=== PATIENT | male | born 1945 | race Caucasian/White ===

== ENCOUNTER 2018-04-21 18:28 | Emergency (ER) | payer MEDICARE ==
[~2018-04-21] VITALS: Ht 177.8 cm; Wt 122.5 kg
[~2018-04-21 18:28] MED LIST: ACETAMINOPHEN325 M1 PO; ALEVE220 MG PO; ALLEGRA ALLERG180 MG PO; ALLEGRA ALLERGY60 MG; ASPIR 8181 MG PO; ASTELIN30 ML IH; ASTEPRO30 ML; ASTEPRO30 ML IH; AVODART0.5 MG PO; CARVEDILOL12.5 MG PO; CIPRO500 MG PO; CLONIDINE HCL0.1 MG PO; DYMISTA NASAL S23 GM; FEXOFENADINE H180 MG PO; FLONASE16 GM; FLUTICASONE PRO16 GM; FUROSEMIDE40 MG PO; IRBESARTAN150 MG PO; LASIX40 MG PO; LEVSIN0.125 MG PO; LIPITOR20 MG PO; LOVAZA1 GM PO; MATURE MVI; MULTIVITAMIN1 EAC1 PO; NEXIUM PO; NEXIUM40 MG PO; NIACIN500 M2 PO; OSCIMIN SR0.375 MG PO; POTASSIUM OTC; POTASSIUM99 M1 PO; PREDNISONE10 MG PO; TERAZOSIN HCL5 MG PO; VITAMIN C500 MG PO; Z GLUCOSAMINE PO; Z SULAR; Z SULAR PO; Z.0.ASPIRIN325 MG PO; Z.0.AVAPRO300 MG PO; Z.0.CARVEDILOL25 MG PO; Z.0.ESIDRIX25 MG PO; Z.0.FUROSEMIDE20 MG PO; Z.0.HYDROCHLOROTHIA2 PO; Z.0.HYTRIN5 MG PO; Z.0.LASIX20 MG; Z.0.LIPITOR20 MG PO; Z.0.LOVAZA1 GM; Z.0.LOVAZA1 GM PO; Z.0.NASONEX17 GM; Z.0.NASONEX17 GM NS; Z.0.NEXIUM40 M1 PO; Z.0.NEXIUM40 MG PO; Z.0.NIASPAN500 MG PO; Z.0.TERAZOSIN HCL5 M PO; Z.0.VITAMIN C500 M1; Z.0.VITAMIN C500 M1 PO; Z.0.ZYRTEC10 M3; Z.0.ZYRTEC10 M3 PO; [UNRECOGNIZED DRUG - CODE]; [UNRECOGNIZED DRUG - OTHER]; [UNRECOGNIZED DRUG - OTHER] PO; [UNRECOGNIZED DRUG - OTHER] PO; [UNRECOGNIZED DRUG - REMARK] PO
--- OUTSIDE RECORDS SUMMARY | 2018-04-21 18:31 | XMS REPORT | Summary of Care ---
Author Author [facility] [place] Organization [facility] [place] Address Unknown Phone Unavailable Encounter HQ Encntr_aligovind(FIN) [id number] Date(s): 09/01/16 - 09/01/16 [facility] [place] [address] [place] [address]- [phone] Discharge Disposition: Home or Self Care Attending Physician: Newton De Anda MD Vital Signs No data available for this section Problem List Condition Effective Dates Status Health Status Informant Hyperlipidemia(Confi Resolved rmed) Hypertension(Confirm Resolved ed) Allergies, Adverse Reactions, Alerts Substance Reaction Severity Status sulfa drugs Active Medications No data available for this section Results No data available for this section Immunizations No data available for this section Procedures Procedure Date Related Diagnosis Body Site Ulnar nerve block at elbow Social History Social History Type Response Assessment and Plan No data available for this section
--- OUTSIDE RECORDS SUMMARY | 2018-04-21 18:31 | XMS REPORT | Continuity of Care Document ---
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, LUMBAR REGION" Active 08/23/2016 [facility] Hyperlipidemia Resolved Problem 09/04/2016 [facility] [place] Hypertension Resolved Problem 09/04/2016 [facility] [place] Medications Medication Details Route Status Patient Instructions Ordering Provider Order Date Source Allergies, Adverse Reactions, Alerts Substance Category Reaction Severity Reaction type Status Date Reported Comments Source sulfa drugs Assertion Drug allergy Active [facility] [place] Immunizations Immunization Date Given Site Status Last Updated Comments Source Results Order Name Results Value Reference Range Date Interpretation Comments Source Spine lumbar wo contrast MRI Spine lumbar wo contrast MRI LUMBAR SPINE MRI .09/01/2016 TECHNIQUE: Sagittal T1, sagittal T2 with fat saturation, axial T1 and axial T2 images were obtained. Comparison: Plain films 09/03/2008 FINDINGS: Grade 1 (7 mm) anterior listhesis of L4-L5 is again noted. No definite pars defect is seen though slice selection slightly limiting on the left. Right L5 laminotomy defect is noted with slight pseudomeningocele. No evidence of arachnoiditis or significant paravertebral fluid collection. The vertebrae are otherwise normal in shape, signal intensity and alignment. The intervertebral disks are desiccated but normal in height. The paravertebral musculature demonstrates moderate fatty atrophy in keeping with deconditioning. The conus medullaris terminates normally at the T12-L1 level. There is no intradural mass lesion. L1-L2: Unremarkable L2-L3: Minimal facet hypertrophy and joint fluid. No disc herniation or significant stenosis. L3-L4: Minimal disc bulge and facet hypertrophy. Minimal neural foraminal and lateral recess narrowing with facets contacting the L3 and descending L4 nerve roots. L4-L5: Mild disc bulge exaggerated by the anterolisthesis with moderate facet hypertrophy, right greater than left facet fluid, and mild ligamentum flavum thickening. This results in moderate bilateral neural foraminal narrowing with deformity of the L4 nerve roots. Moderate left lateral recess narrowing with displacement of the descending left L5 nerve root. L5-S1: Mild disc bulge and facet hypertrophy. This results in mild bilateral neural foraminal narrowing contact to the L5 nerve roots. Mild left lateral recess narrowing. IMPRESSION: 1. Right L5 laminectomy defect with slight pseudomeningocele. 2. Moderate multilevel degenerative changes most notable at L4-L5 with grade 1 anterior listhesis, moderate bilateral neural foraminal and left lateral recess narrowing. Lesser stenoses as detailed above. If there is clinical concern for instability, consider flexion-extension views. 09/01/2016 - - Read by: Reynold Frias MD Dictated Date/time: 09/01/16 16:15 Electronically Signed by: Reynold Frias MD 09/01/16 16:22 FINAL REPORT [facility] Hip 2/3 views uni DX Hip 2/3 views uni DX Exam: Left hip x-ray, 2 views Reason for Exam: pain left hip joint Comparison Exam: CT scan 08/28/2007 Discussion: No fractures or dislocations are seen within the left hip. No suspicious osteoblastic or osteolytic lesions. 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 No evidence for avascular necrosis of the femoral head. The visualized portions of the pubic symphysis and SI joint are unremarkable. Impression: 1. No acute bony abnormalities identified. 09/01/2016 - - Read by: Anoop Hernandez MD Dictated Date/time: 09/01/16 13:14 Electronically Signed by: Anoop Hernandez MD 09/01/16 13:16 FINAL REPORT [facility] Vital Signs Vital Sign Value Date Comments Source Encounters Location Location Details Encounter Type Encounter Number Reason For Visit Attending Provider ADM Date DC Date Status Source [facility] [place] Out[facility] Diag Services [id number] Newton Neetu 09/01/2016 09/02/2016 [facility] Procedures Procedure Code Date Perfomer Comments Source Ulnar nerve block at elbow [id number] [facility]
[2018-05-28] MEDS ORDERED: POTASSIUM CHLO10 ME1 PO ×2 (07:59→15:28)
== END 2018-04-21 19:12 | disposition home or self-care (01) ==
LOC: FSED 18:28
DX: R50.9 Fever, unspecified (principal); R05 Cough; J06.9 Acute upper respiratory infection, unspecified; I10 Essential (primary) hypertension
CPT/HCPCS: 99282

== ENCOUNTER 2018-05-24 07:41 | Emergency (ER) | payer MEDICARE ==
[~2018-05-24] VITALS: Ht 177.8 cm; Wt 122.5 kg
--- NOTE | 2018-05-24 08:34 | Diagnostic Imaging Report ---
PROCEDURE:ABDOMEN 1 VIEW(KUB)-[facility] COMPARISON:None. INDICATIONS:constipation FINDINGS:The bowel gas pattern shows no dilated, air-filled loops of bowel. Substantial fecal material within the rectum. No abnormal abdominal mass effect organomegaly. No elias pneumoperitoneum. Surgical clips project over the right upper quadrant of the abdomen likely related to prior cholecystectomy. Regional skeletal structures are intact with degenerative disc changes of the lower lumbar spine. CONCLUSION: Nonobstructive bowel gas pattern. Large amount of rectal fecal material in keeping with constipation. Dictated by: Ponce Ortiz M.D. on 05/24/2018 at 8:44 Electronically approved by: Ponce Ortiz M.D. on 05/24/2018 at 8:44
[2018-05-28] MEDS ORDERED: POTASSIUM CHLO10 ME1 PO ×2 (07:59→15:28)
== END 2018-05-24 09:11 | disposition home or self-care (01) ==
LOC: FSED 07:41
DX: R10.84 Generalized abdominal pain (principal); K59.00 Constipation, unspecified; I10 Essential (primary) hypertension; E78.5 Hyperlipidemia, unspecified; J44.9 Chronic obstructive pulmonary disease, unspecified
CPT/HCPCS: 74018; 99283

== ENCOUNTER 2018-05-27 21:24 | Observation (INO) | payer MEDICARE ==
[~2018-05-27] VITALS: Ht 177.8 cm; Wt 118.9 kg
--- OUTSIDE RECORDS SUMMARY | 2018-05-27 21:27 | XMS REPORT ---
Author Author [facility] Address Unknown Phone Unavailable Care Team Providers Care Tin Flipper Name Role Phone Hussain SINHA Unavailable Unavailable Problems This patient has no known problems. Allergies, Adverse Reactions, Alerts This patient has no known allergies or adverse reactions. Medications This patient has no known medications. Results Test Description Test Time Test Comments Text Results Atomic Results Result Comments [facility] 2018-05-24 08:44:00 [place] [address] Patient Name: JACOBO LANE MR #: [id number] : 1945 Age/Sex: 73/M Req #: [id number] [facility] Physician: Ordered by: LYNN SINHA MD Report #: [id number] Location: [facility] Room/Bed: Procedure: [id number] [facility]/ABDOMEN 1 VIEW(KUB)-[facility] Exam Date: 05/24/18 Exam Time: 0833 REPORT STATUS: Signed PROCEDURE: [facility] COMP ARISON: None. INDICATIONS: constipation FINDINGS: The bowel gas pattern shows no dilated, air-filled loops of bowel. Substantial fecal material within the rectum. No abnormal abdominal mass effect organomegaly. No elias pneumoperitoneum. Surgical clips project over the right upper quadrant of the abdomen likely related to prior cholecystectomy. Regional skeletal structures are intact with degenerative disc changes of the lower lumbar spine. CONCLUSION: Nonobstructive bowel gas pattern. Large amount of rectal fecal material in keeping with constipation. Dictated by: Sabi Mendez M.D. on 05/24/2018 at 8:44 Electronically approved by: Sabi Mendez M.D. on 05/24/2018 at 8:44 Dictated By: SABI MENDEZ MD 3 Transcribed By: KALYANI on 05/24/18 08 COPY TO: LYNN SINHA MD
[2018-05-27] MEDS ORDERED: POTASSIUM CHLORIDE 20 MEQ TAB CR PO STA (22:43)
[2018-05-27] MEDS ORDERED: SODIUM CHLORIDE FLUSH 10 ML SYR INJ PRN (23:00)
--- NOTE | 2018-05-27 23:03 | Diagnostic Imaging Report ---
CXR 1 VEW - [facility], Technique: CXR 1 VEW - [facility] Comparison: 11/02/2015 Clinical history: Irregular heartbeat DISCUSSION: Single frontal view provided. Stable appearance of the heart, mediastinum, lungs and pleural spaces. IMPRESSION: No acute abnormality Signed by: Dr Lizett Dong MD on 05/27/2018 11:00 PM
[2018-05-28] VITALS: BP 152/78
[2018-05-28 02:00] VITALS: BP 136/80
[2018-05-28 05:17] LABS: CREATINE KINASE 92 IU/L (30-200)
[2018-05-28 06:07] VITALS: BP 153/80
[2018-05-28 06:11] LABS: BASOPHILS # (AUTO) 0.1 (0.0-0.1); BASOPHILS % 0.9 % (0.0-1.0); EOSINOPHILS # (AUTO) 0.2 (0.0-0.4); EOSINOPHILS % 3.2 % (0.0-6.0); HEMATOCRIT 36.4 % (38.2-49.6); HEMOGLOBIN 11.9 g/dL (14.0-18.0); LYMPHOCYTES % 34.9 % (18.0-39.1); MEAN CORPUSCULAR HEMOGLOBIN 30.2 pg (28-32); MEAN CORPUSCULAR HGB CONC 32.7 g/dL (31-35); MEAN CORPUSCULAR VOLUME 92.4 fL (81-99); MONOCYTES # (AUTO) 0.7 (0.2-0.8); MONOCYTES % 11.6 % (4.4-11.3); NEUTROPHILS # (AUTO) 2.8 (2.1-6.9); NEUTROPHILS % 48.9 % (38.7-80.0); PLATELET COUNT 213 x10e3/uL (140-360); RED BLOOD COUNT 3.94 x10e6/uL (4.3-5.7); RED CELL DISTRIBUTION WIDTH 13.9 % (11.7-14.4)
[2018-05-28 06:41] LABS: ANION GAP 18.2 mmol/L (8-16); BLOOD UREA NITROGEN 8 mg/dL (7-26); BUN/CREATININE RATIO 10 (6-25); CALCIUM 9.1 mg/dL (8.4-10.2); CARBON DIOXIDE 23 mmol/L (22-29); CHLORIDE 101 mmol/L (98-107); CREATININE, SERUM 0.81 mg/dL (0.72-1.25); EST GLOMERULAR FILTRATION RATE > 60 ML/MIN (60-); GLUCOSE 92 mg/dL (74-118); POTASSIUM 3.2 mmol/L (3.5-5.1); SODIUM 139 mmol/L (136-145)
[2018-05-28] MEDS ORDERED: POTASSIUM CHLORIDE 20 MEQ TAB CR PO STA (07:03)
[2018-05-28] MEDS ORDERED: PANTOPRAZOLE SOD 40 MG TABEC PO SCH (07:30)
[2018-05-28] MEDS ORDERED: IRBESARTAN150 MG PO (07:36)
[2018-05-28] MEDS ORDERED: AMITRIPTYLINE H25 MG PO (07:36)
[2018-05-28] MEDS ORDERED: ACETAMINOPHEN650 MG PO (07:36)
[2018-05-28] MEDS ORDERED: ADVAIR 100-501 EACH (07:36)
[2018-05-28] MEDS ORDERED: LIPITOR20 MG (07:53)
[2018-05-28] MEDS ORDERED: RANITIDINE HCL300 M1 PO (07:53)
[2018-05-28] MEDS ORDERED: FUROSEMIDE40 MG PO (07:53)
[2018-05-28] MEDS ORDERED: METOLAZONE5 MG PO (07:53)
[2018-05-28] MEDS ORDERED: PRIMIDONE250 MG PO (07:53)
[2018-05-28] MEDS ORDERED: ZYRTEC10 M3 (07:53)
[2018-05-28] MEDS ORDERED: PROPRANOLOL HCL80 MG PO (07:53)
[2018-05-28] MEDS ORDERED: ZYRTEC10 MG PO (07:53)
[2018-05-28] MEDS ORDERED: MONTELUKAST SOD10 MG PO (07:53)
[2018-05-28] MEDS ORDERED: IPRATROPIU0.2 MG/1 M NEB (07:53)
[2018-05-28] MEDS ORDERED: NIACIN500 M2 PO (07:53)
[2018-05-28] MEDS ORDERED: TERAZOSIN HCL5 MG PO (07:53)
[2018-05-28] MEDS ORDERED: POTASSIUM CHLO10 ME1 PO ×2 (07:59→15:28)
[2018-05-28] MEDS ORDERED: CEPHALEXIN500 MG PO (07:59)
[2018-05-28] MEDS ORDERED: AVODART0.5 MG PO (08:01)
[2018-05-28 08:41] VITALS: BP 131/77
[2018-05-28] MEDS ORDERED: SALMETEROL/FLUTICASONE 100/50 INH SCH (09:00)
[2018-05-28] MEDS ORDERED: CLONIDINE HCL 0.3 MG TAB PO SCH (09:00)
[2018-05-28] MEDS ORDERED: CARVEDILOL 12.5 MG TAB PO SCH (09:00)
[2018-05-28] MEDS ORDERED: MONTELUKAST SODIUM 10 MG TAB PO SCH (09:00)
[2018-05-28] MEDS ORDERED: FUROSEMIDE 40 MG TAB PO SCH (09:00)
[2018-05-28] MEDS ORDERED: POTASSIUM CHLORIDE 20 MEQ TAB CR PO SCH (09:00)
[2018-05-28] MEDS ORDERED: NON-FORMULARY MEDICATION (Esomeprazole Mag Trihydrate (Nexium) 40 MG) PO SCH (09:00)
[2018-05-28] MEDS ORDERED: ASPIRIN 81 MG CHEW TAB PO SCH (09:00)
[2018-05-28] MEDS ORDERED: ATORVASTATIN 20 MG TAB PO SCH ×4 (09:00→21:00)
[2018-05-28] MEDS ORDERED: CLONIDINE HCL 0.1 MG TAB PO SCH (09:00)
--- NOTE | 2018-05-28 11:22 | Consultation ---
DATE OF CONSULTATION: May 28, 2018 ATTENDING PHYSICIAN: Dr. Parks Thank you so much for asking me to see Mr. Yates again in consultation. He is a charming, 73-year-old man known to me for many years, who presented to the emergency room with a complaint of irregular heartbeat. HISTORY OF PRESENT ILLNESS: The patient tells me that last evening he was watching television and decided to put his finger on his pulse in his neck and noted that it was irregular and decided to come to the emergency room where they then found him to have a slightly low potassium. PAST MEDICAL HISTORY: Significant for hypertension, PACs, PVCs, hyperlipidemia, minor coronary disease, recent edema and gastroesophageal reflux. MEDICATIONS: Recent home medications include: 1. Aspirin 81 mg daily. 2. Dutasteride 0.5 mg daily. 3. Lovaza 1-gram capsule twice daily. 4. Multivitamin. 5. Potassium 90-mg tablet daily. 6. Terazosin 5 mg daily. 7. Vitamin C. 8. Fluticasone inhaler. 9. Furosemide 40 mg 2 tablets daily. 10. Niaspan. 11. Avapro 300 mg daily. 12. Amitriptyline 25 mg daily. 13. Clonidine 0.3-mg tablet twice a day. 14. Ipratropium inhaler. 15. Nexium 40 mg daily. 16. Ranitidine 300 mg daily. 17. Propranolol ER 80 mg once a day. 18. Irbesartan 300 mg daily. 19. Atorvastatin 20 mg every day. 20. Metolazone 2.5 mg every other day. SURGICAL HISTORY: Includes remote appendectomy, remote tonsillectomy, remote cholecystectomy. He had cardiac catheterization performed December 13, 2011, that showed minimal coronary disease. He had an EGD and dilatation of the esophagus by Dr. Sánchez in February 2014. FAMILY HISTORY: Father of dementia. Mother at 92 with hypertension and congestive heart failure. PERSONAL AND SOCIAL HISTORY: He does not smoke nor drink. PHYSICAL EXAMINATION GENERAL: Exam at this time shows a large, obese, white man who is ambulating in his room. VITALS: Blood pressure 124/54. Pulse 69 with prematures. He is 5 feet 10 inches tall, weighing 258 pounds. HEENT: Unremarkable. NECK: No jugular venous distention. THORAX: Heart sounds S1 and S2 are equal. No murmurs, gallops or rubs. Regular at this time. Lungs are clear. ABDOMEN: Protuberant. EXTREMITIES: Trace pretibial edema. EKG shows sinus rhythm with PACs. Laboratory studies show the low potassium value as mentioned. ASSESSMENT 1. Premature atrial contractions previously diagnosed. 2. Hypokalemia, currently being repleted. 3. Hypertension. 4. Hyperlipidemia. 5. Recent history of tremor. 6. Peripheral edema with echocardiogram showing good left ventricular function, ejection fraction 53%, performed March 14, 2018. PLAN: Would recommend he take prescription potassium tablets. I have left a prescription for 10 mEq daily. Would recommend that we follow him up in the office in 2 weeks without further evaluation. Thank you for asking me to see him in consultation. Job#: [id number] cc:MD SHANNON LANDIS,
[2018-05-28 12:20] VITALS: BP 137/72
[2018-05-28 14:16] LABS: CREATINE KINASE 93 IU/L (30-200)
--- NOTE | 2018-05-28 17:44 | Discharge Summary ---
ADMISSION DIAGNOSES 1. Palpitations. 2. Hypokalemia. 3. Hypertension. 4. Hyperlipidemia. 5. Gastroesophageal reflux disease. 6. Sleep apnea. 7. Benign prostatic hypertrophy. 8. Obesity. 9. Hand tremors. DISCHARGE DIAGNOSES 1. Palpitations. 2. Hypokalemia. 3. Hypertension. 4. Hyperlipidemia. 5. Gastroesophageal reflux disease. 6. Sleep apnea. 7. Benign prostatic hypertrophy. 8. Obesity. 9. Hand tremors. HISTORY: The patient has a history of hypertension, hyperlipidemia, GERD, BPH, sleep apnea. SURGICAL HISTORY: Cholecystectomy, appendectomy, tonsillectomy, L4-L5 laminectomy, left elbow ulnar nerve surgery. FAMILY HISTORY: Patient's dad has cancer. Patient's mom had a stroke. SOCIAL HISTORY: Patient denies tobacco, alcohol, and illicit drug use. ALLERGIES: PATIENT HAS ALLERGY TO SULFA, CIPRO, MACROBID, AND SCALLOPS. HOSPITAL COURSE: A 73-year-old male complains of palpitations that began around 9 p.m. last night while sitting on the couch. He felt his pulse and knew that it was irregular. It lasted about 5 minutes before he drove himself to the ER. He had no associated symptoms. On admission, EKG was done that showed normal sinus rhythm with PACs. Cardiology was consulted, who cleared patient for discharge. Potassium was 3.2 on admission and repleted. Patient will resume home medicines and increase his potassium at the time of discharge. Patient has been cleared per cardiology. Vital signs stable. Patient afebrile. He will follow up with cardiology as discussed and primary care in 1 to 2 weeks. Dictated by: Adrianne Mata NP MARK LAWSON MD Job#: [id number] LIA
[2018-05-28] MEDS ORDERED: AMITRIPTYLINE HCL 25 MG TAB PO SCH (21:00)
[2018-05-28] MEDS ORDERED: TERAZOSIN HCL 5 MG CAP PO SCH (21:00)
[2018-05-28] MEDS ORDERED: HYDROCHLOROTHIAZIDE 25 MG TAB PO SCH (21:00)
[2018-05-28] MEDS ORDERED: IRBESARTAN 150 MG TAB PO SCH (21:00)
[2018-05-29] MEDS ORDERED: PROPRANOLOL HCL 80 MG CAPCR PO SCH (06:00)
[2018-05-29] MEDS ORDERED: DUTASTERIDE 0.5 MG CAP PO SCH (06:00)
== END 2018-05-28 16:33 | disposition home or self-care (01) ==
LOC: FSED 21:24 → ERHOLD 22:57 → MED/SURG2 05-28 01:53
PROVIDERS: ADMIT Internal Medicine; ATTEND Internal Medicine
DX: R00.2 Palpitations (principal); E87.6 Hypokalemia; I49.1 Atrial premature depolarization; I10 Essential (primary) hypertension; E78.5 Hyperlipidemia, unspecified; K21.9 Gastro-esophageal reflux disease without esophagitis; G47.30 Sleep apnea, unspecified; N40.0 Benign prostatic hyperplasia without lower urinary tract symptoms; E66.9 Obesity, unspecified; Z68.37 Body mass index [BMI] 37.0-37.9, adult; R25.1 Tremor, unspecified; R60.0 Localized edema; Z79.82 Long term (current) use of aspirin; Z88.2 Allergy status to sulfonamides; Z88.1 Allergy status to other antibiotic agents; Z91.013 Allergy to seafood; Z88.8 Allergy status to other drugs, medicaments and biological substances; Z91.048 Other nonmedicinal substance allergy status
CPT/HCPCS: 36415; 71045; 80048; 80076; 81003; 82550; 82553; 83735; 84439; 84443; 84484; 85025; 93005; 99284; G0378 ×2; S0164

== ENCOUNTER 2018-06-27 17:30 | Emergency (ER) | payer MEDICARE ==
[~2018-06-27] VITALS: Ht 177.8 cm; Wt 115.7 kg
[~2018-06-27 17:30] MED LIST changes: +ACETAMINOPHEN650 MG PO; +ADVAIR 100-501 EACH; +AMITRIPTYLINE H25 MG PO; +CEPHALEXIN500 MG PO; +IPRATROPIU0.2 MG/1 M NEB; +LIPITOR20 MG; +METOLAZONE5 MG PO; +MONTELUKAST SOD10 MG PO; +POTASSIUM CHLO10 ME1 PO; +PRIMIDONE250 MG PO; +PROPRANOLOL HCL80 MG PO; +RANITIDINE HCL300 M1 PO; +ZYRTEC10 M3; +ZYRTEC10 MG PO
--- NOTE | 2018-06-27 18:40 | NUR ---
REPORT TO CJ REYES ALL QUESTIONS ANSWERED
--- NOTE | 2018-06-27 18:46 | Diagnostic Imaging Report ---
CT [facility] HISTORY: Headache COMPARISON: Report from head CT dated 05/30/2016 Technique: Noncontrast axial scans were obtained from skull base to the vertex. Coronal and sagittal reconstructions obtained from the axial data. One or more of the following dose reduction techniques were used: Automated exposure control, adjustment of the mA and/or kV according to patient size, and/or utilization of iterative reconstruction technique. DISCUSSION: Scalp/Skull: Unremarkable. Brain sulci: Mildly prominent. Ventricles: Compensatory dilatation. Extra-axial spaces: No masses or fluid collections. Carotid siphon calcifications are present. Parenchyma: Mild bilateral deep white matter hypodensity is likely chronic microvascular ischemic change. Otherwise, no masses, hemorrhage, or large vascular territory acute infarct. Dural sinuses: No abnormal densities. Sellar/Suprasellar region: Intact. Skull base: Intact. Incidental findings: Both ocular lenses are thinned. IMPRESSION: 1. No acute intracranial abnormalities. 2. Mild supratentorial chronic microvascular ischemic change. Mild generalized cerebral volume loss. Signed by: Dr. Aguila Espinoza M.D. on 06/27/2018 6:42 PM
== END 2018-06-27 19:17 | disposition home or self-care (01) ==
LOC: FSED 17:30
DX: G43.909 Migraine, unspecified, not intractable, without status migrainosus (principal); I10 Essential (primary) hypertension; I51.9 Heart disease, unspecified; I50.9 Heart failure, unspecified; E78.5 Hyperlipidemia, unspecified; Z85.828 Personal history of other malignant neoplasm of skin
CPT/HCPCS: 70450; 99283

== ENCOUNTER 2018-12-24 17:52 | Emergency (ER) | payer MEDICARE ==
[~2018-12-24] VITALS: Ht 177.8 cm; Wt 117.9 kg
--- OUTSIDE RECORDS SUMMARY | 2018-12-24 17:56 | XMS REPORT | Continuity of Care Document ---
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, LUMBAR REGION" Active 08/23/2016 [facility] [place] Hyperlipidemia Resolved Problem 09/04/2016 [facility] [place] Hypertension Resolved Problem 09/04/2016 [facility] [place] Medications No Data Provided for This Section Allergies, Adverse Reactions, Alerts Substance Category Reaction Severity Reaction type Status Date Reported Comments Source sulfa drugs Assertion Drug allergy Active [facility] [place] Immunizations No Data Provided for This Section Results No Data Provided for This Section Pathology Reports No Data Provided for This Section Diagnostic Reports Report Value Date Source Spine lumbar wo contrast MRI LUMBAR SPINE [...] concern for instability, consider flexion-extension views. 09/01/2016 [facility] Hip 2/3 views uni DX Exam: Left [...] 1. No acute bony abnormalities identified. 09/01/2016 [facility] Consultation Notes No Data Provided for This Section Discharge Summaries No Data Provided for This Section History and Physicals No Data Provided for This Section Vital Signs No Data Provided for This Section Encounters Location Location Details Encounter Type Encounter Number Reason For Visit Attending Provider ADM Date DC Date Status Source [facility] - [place] Outpt Diag Services [id number] Newton De Anda 09/01/2016 09/02/2016 [facility] Procedures Procedure Code Date Perfomer Comments Source Ulnar nerve block at elbow [id number] [facility] Assessment and Plan No Data Provided for This Section Plan of Care No Data Provided for This Section Social History Social History Date Source Social History TypeResponse 09/02/2016 [facility] Family History No Data Provided for This Section Advance Directives No Data Provided for This Section Functional Status No Data Provided for This Section
--- NOTE | 2018-12-24 20:10 | Diagnostic Imaging Report ---
History: Sinus infection, headaches Comparison studies: CT head 06/27/2014 Technique: Axial images were obtained from the skull base to the vertex. Coronal and sagittal reconstructions obtained from the axial data. Dose modulation, iterative reconstruction, and/or weight based adjustment of the mA/kV was utilized to reduce the radiation dose to as low as reasonably achievable. Findings: Scalp/skull: No abnormalities. No fractures, blastic or lytic lesions. Extra-axial spaces: No masses. No fluid collections. Brain sulci: Mildly prominent, age related. Ventricles: Normal in size and configuration. No hydrocephalus. Parenchyma: Few hypodensities of the periventricular deep white matter, nonspecific and most seen with mild chronic microvascular ischemic changes. No masses, hemorrhage, acute or chronic cortical vascular insults. Sellar/suprasellar region: No abnormalities Craniocervical junction: Patent foramen magnum. No Chiari one malformation. Partially visualized opacification of the right frontal sinus, stable from previous examination IMPRESSION: No acute intracranial abnormalities. 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 Signed by: DR Uri Giang M.D. on 12/24/2018 8:06 PM
[2018-12-24 20:26] VITALS: BP 168/83
== END 2018-12-24 20:35 | disposition home or self-care (01) ==
LOC: FSED 17:52
DX: R51 Headache (principal); J01.10 Acute frontal sinusitis, unspecified; I10 Essential (primary) hypertension
CPT/HCPCS: 70450; 99283

== ENCOUNTER 2019-01-23 18:11 | Emergency (ER) | payer MEDICARE ==
[~2019-01-23] VITALS: Ht 177.8 cm; Wt 118.8 kg
--- OUTSIDE RECORDS SUMMARY | 2019-01-23 18:14 | XMS REPORT | Continuity of Care Document ---
Author Author [employer] [employer] Address Unknown Phone Unavailable Care Team Providers Care Beauty Culturist Name Role Phone [employer] Unavailable Unavailable Problems Problem Status Onset Date Classification Date Reported Comments Source M54.16 - "RADICULOPATHY, LUMBAR REGION" Active 08/23/2016 [facility] [place] Hyperlipidemia Resolved Problem 09/04/2016 [facility] [place] Hypertension Resolved Problem 09/04/2016 [facility] [place] Medications No Data Provided for This Section Allergies, Adverse Reactions, Alerts Substance Category Reaction Severity Reaction type Status Date Reported Comments Source sulfa drugs Assertion Drug allergy Active [facility] [place] Immunizations No Data Provided for This Section [...] Provider ADM Date DC Date Status Source [facility] [place] Out[facility] Diag Services [id number] Newton De Anda 09/01/2016 09/02/2016 [facility] Procedures Procedure Code Date Perfomer Comments Source Ulnar nerve block at elbow [id number] [facility] [place] Assessment and Plan No Data Provided for This Section Plan of Care No Data Provided for This Section Social History Social History Date Source Social History TypeResponse 09/02/2016 [facility] Family History No Data Provided for This Section Advance Directives No Data Provided for This Section Functional Status No Data Provided for This Section
--- NOTE | 2019-01-23 18:50 | NUR ---
REPORT TO KIERAN REYES ALL QUESTIONS ANSWERED
[2019-01-23] MEDS ORDERED: KETOROLAC TROMETHAMINE 30 MG/ML VIAL ONE ×2 (18:57→18:58)
[2019-01-23] MEDS ORDERED: KETOROLAC TROMETHAMINE 60 MG/2 ML VIAL IM ONE (19:00)
== END 2019-01-23 19:40 | disposition home or self-care (01) ==
LOC: FSED 18:11
DX: G44.201 Tension-type headache, unspecified, intractable (principal); I10 Essential (primary) hypertension; B34.9 Viral infection, unspecified; E78.5 Hyperlipidemia, unspecified; K21.9 Gastro-esophageal reflux disease without esophagitis
CPT/HCPCS: 99282; J1885

== ENCOUNTER 2020-07-28 21:30 | Observation (INO) | payer MEDICARE ==
[~2020-07-28] VITALS: Ht 177.8 cm; Wt 107.1 kg
[~2020-07-28 21:30] MED LIST changes: -ADVAIR 100-501 EACH; +ADVAIR 100-501 EACH INH; -LIPITOR20 MG
[2020-07-28] MEDS ORDERED: SODIUM CHLORIDE FLUSH 10 ML SYR INJ PRN (22:00)
[2020-07-28] MEDS ORDERED: DIPHENHYDRAMINE HCL INJ 50 MG/ML VIAL IV PRN (22:00)
[2020-07-28] MEDS ORDERED: ONDANSETRON HCL INJ 2MG/ML 2ML 2 MG/ML VIAL IV PRN (22:00)
[2020-07-29] VITALS (10 sets, daily range): BP systolic 145–177; BP diastolic 69–91
[2020-07-29] MEDS ORDERED: NEXIUM40 MG PO (01:44)
[2020-07-29] MEDS ORDERED: FAMOTIDINE20 MG PO (01:44)
[2020-07-29] MEDS ORDERED: LINZESS145 MCG PO (01:44)
[2020-07-29] MEDS ORDERED: VITAMIN C1000 MG PO (01:44)
[2020-07-29] MEDS ORDERED: INDERAL LA60 MG PO (01:44)
[2020-07-29] MEDS ORDERED: FISH OIL 1,0001 EAC3 PEG (01:44)
[2020-07-29] MEDS ORDERED: ZYRTEC10 M3 PO (01:44)
[2020-07-29] MEDS ORDERED: TYLENOL EXTRA500 MG PO (01:44)
[2020-07-29] MEDS ORDERED: K-DUR20 MEQ PO (01:44)
[2020-07-29] MEDS ORDERED: MULTI-VITAMIN1 EACH PO (01:44)
[2020-07-29] MEDS ORDERED: IPRATROPIUM BROMIDE 0.02% 2.5 ML NEB NEB PRN (03:15)
[2020-07-29] MEDS ORDERED: METOLAZONE 5 MG TAB PO SCH ×2 (03:15→09:00)
[2020-07-29] MEDS ORDERED: HYDRALAZINE HCL 20 MG/ML VIAL IV PRN (03:15)
[2020-07-29] MEDS ORDERED: LINACLOTIDE 145 MCG CAPSULE PO PRN (03:15)
[2020-07-29] MEDS ORDERED: TEMAZEPAM 7.5 MG CAP PO PRN (03:15)
[2020-07-29] MEDS ORDERED: POLYETHYLENE GLYCOL 3350 17 GM PACK PO PRN (03:15)
[2020-07-29 05:54] LABS: MAGNESIUM 1.7 MG/DL (1.3-2.1); PHOSPHORUS 2.9 MG/DL (2.3-4.7)
[2020-07-29] MEDS: DUTASTERIDE 0.5 MG CAP PO SCH (05:56)
[2020-07-29 06:14] LABS: THYROID STIMULATING HORMONE 1.7 uIU/mL (0.350-4.940)
[2020-07-29] MEDS ORDERED: MAGNESIUM SULF 1GRAM/DEXTROSE 100 ML IV ONE (06:30)
[2020-07-29] MEDS ORDERED: POTASSIUM CHLORIDE 20 MEQ TAB CR PO SCH (09:00)
[2020-07-29] MEDS ORDERED: CLONIDINE HCL 0.1 MG TAB PO SCH (09:00)
[2020-07-29] MEDS: MONTELUKAST SODIUM 10 MG TAB PO SCH (09:00)
[2020-07-29] MEDS: MULTIVITAMINS/MINERALS TAB PO SCH (09:00)
[2020-07-29] MEDS: LORATADINE 10 MG TAB PO SCH (09:00)
[2020-07-29] MEDS ORDERED: ASPIRIN 325 MG TAB PO SCH ×2 (09:00→21:00)
[2020-07-29] MEDS: SALMETEROL/FLUTICASONE 100/50 INH SCH (09:00)
[2020-07-29] MEDS ORDERED: OMEGA 3 POLYUNSAT FATTY ACIDS 1000 MG SOFTGEL PO SCH (09:00)
[2020-07-29] MEDS ORDERED: DOCUSATE SODIUM 100 MG CAP PO SCH (09:00)
[2020-07-29] MEDS ORDERED: FUROSEMIDE 40 MG TAB PO SCH (09:00)
[2020-07-29] MEDS: PANTOPRAZOLE SOD 40 MG TABEC PO SCH (09:00)
[2020-07-29] MEDS ORDERED: POTASSIUM CHLORIDE 10MEQ EA ONE (10:13)
[2020-07-29] MEDS: PROPRANOLOL HCL 60 MG ER CAP PO SCH (10:33)
[2020-07-29 10:42] LABS: ALANINE AMINOTRANSFERASE 12 IU/L (0-55); ALBUMIN 3.3 g/dL (3.5-5.0); ALBUMIN/GLOBULIN RATIO 1.3 (0.8-2.0); ALKALINE PHOSPHATASE 72 IU/L (40-150); ANION GAP 17.1 mmol/L (8-16); BLOOD UREA NITROGEN 8 mg/dL (7-26); BUN/CREATININE RATIO 10 (6-25); CARBON DIOXIDE 23 mmol/L (22-29); CHLORIDE 100 mmol/L (98-107); CREATININE, SERUM 0.78 mg/dL (0.72-1.25); EST GLOMERULAR FILTRATION RATE > 60 ML/MIN (60-); GLUCOSE 96 mg/dL (74-118); POTASSIUM 4.1 mmol/L (3.5-5.1); SODIUM 136 mmol/L (136-145)
[2020-07-29 10:55] LABS: CHOL/HDL RATIO 4.2 (3.9-4.7)
[2020-07-29] MEDS: ACETAMINOPHEN 325 MG TAB PO PRN ×2 (13:20→18:45)
[2020-07-29] MEDS ORDERED: NIACIN 500 MG TABSR PO SCH (21:00)
[2020-07-29] MEDS ORDERED: TERAZOSIN HCL 5 MG CAP PO SCH (21:00)
[2020-07-29] MEDS ORDERED: ATORVASTATIN 20 MG TAB PO SCH (21:00)
[2020-07-29] MEDS ORDERED: PRIMIDONE 250 MG TABLET PO SCH (21:00)
[2020-07-29] MEDS ORDERED: IRBESARTAN 150 MG TAB PO SCH (21:00)
[2020-07-29] MEDS ORDERED: ASCORBIC ACID 500 MG TAB PO SCH (21:00)
[2020-07-29] MEDS: CLONIDINE HCL 0.3 MG TAB PO SCH (22:05)
[2020-07-29] MEDS: DOCUSATE SODIUM 100 MG CAP PO SCH (22:05)
[2020-07-29] MEDS: POTASSIUM CHLORIDE 20 MEQ TAB CR PO SCH (22:06)
[2020-07-29] MEDS: OMEGA 3 POLYUNSAT FATTY ACIDS 1000 MG SOFTGEL PO SCH (22:06)
[2020-07-30] VITALS: BP 111/57
[2020-07-30 04:00] VITALS: BP 136/85
[2020-07-30 05:37] LABS: BASOPHILS # (AUTO) 0.1 (0.0-0.1); BASOPHILS % 0.9 % (0.0-1.0); EOSINOPHILS # (AUTO) 0.2 (0.0-0.4); HEMOGLOBIN 11.7 g/dL (14.0-18.0); LYMPHOCYTES % 34.5 % (18.0-39.1); MEAN CORPUSCULAR HEMOGLOBIN 29.4 pg (28-32); MEAN CORPUSCULAR HGB CONC 32.5 g/dL (31-35); MEAN CORPUSCULAR VOLUME 90.5 fL (81-99); MONOCYTES # (AUTO) 0.8 (0.2-0.8); MONOCYTES % 14.2 % (4.4-11.3); NEUTROPHILS # (AUTO) 2.7 (2.1-6.9); NEUTROPHILS % 46.7 % (38.7-80.0); PLATELET COUNT 237 x10e3/uL (140-360); RED BLOOD COUNT 3.98 x10e6/uL (4.3-5.7); RED CELL DISTRIBUTION WIDTH 13.7 % (11.7-14.4)
[2020-07-30] MEDS: DUTASTERIDE 0.5 MG CAP PO SCH (05:39)
[2020-07-30] MEDS ORDERED: ULTRAM 50MG50 MG PO (05:44)
[2020-07-30] MEDS ORDERED: PLAVIX75 MG PO (05:44)
[2020-07-30 06:05] LABS: BLOOD UREA NITROGEN 9 mg/dL (7-26); BUN/CREATININE RATIO 11 (6-25); CALCIUM 8.4 mg/dL (8.4-10.2); CARBON DIOXIDE 24 mmol/L (22-29); CHLORIDE 98 mmol/L (98-107); CREATININE, SERUM 0.82 mg/dL (0.72-1.25); EST GLOMERULAR FILTRATION RATE > 60 ML/MIN (60-); GLUCOSE 107 mg/dL (74-118); SODIUM 134 mmol/L (136-145)
[2020-07-30 08:00] VITALS: BP 144/84
[2020-07-30] MEDS ORDERED: ONDANSETRON HCL 4 MG ORAL DISINTEGRATING TAB PO PRN (08:30)
[2020-07-30 08:57] VITALS: BP 144/84
[2020-07-30] MEDS ORDERED: FUROSEMIDE 40 MG TAB PO SCH ×2 (09:00→13:00)
[2020-07-30] MEDS: CLONIDINE HCL 0.3 MG TAB PO SCH (09:39)
[2020-07-30] MEDS: PROPRANOLOL HCL 60 MG ER CAP PO SCH (09:40)
[2020-07-30] MEDS: DOCUSATE SODIUM 100 MG CAP PO SCH (09:40)
[2020-07-30] MEDS: LORATADINE 10 MG TAB PO SCH (09:40)
[2020-07-30] MEDS: OMEGA 3 POLYUNSAT FATTY ACIDS 1000 MG SOFTGEL PO SCH (09:41)
[2020-07-30] MEDS: POTASSIUM CHLORIDE 20 MEQ TAB CR PO SCH (09:41)
[2020-07-30] MEDS: MONTELUKAST SODIUM 10 MG TAB PO SCH (09:41)
[2020-07-30] MEDS: PANTOPRAZOLE SOD 40 MG TABEC PO SCH (09:41)
[2020-07-30] MEDS: MULTIVITAMINS/MINERALS TAB PO SCH (09:41)
[2020-07-30 09:46] VITALS: BP 148/75
[2020-07-30] MEDS: SALMETEROL/FLUTICASONE 100/50 INH SCH (10:06)
[2020-07-30 11:56] VITALS: BP 161/83
[2020-07-30] MEDS ORDERED: FAMOTIDINE 20 MG TAB PO SCH (21:00)
== END 2020-07-30 14:15 | disposition home or self-care (01) ==
LOC: FSED 21:39 → ERHOLD 21:54 → MED/SURG 07-29 00:14
PROVIDERS: ADMIT Internal Medicine; ATTEND Internal Medicine
DX: R20.0 Anesthesia of skin (principal); R73.9 Hyperglycemia, unspecified; I11.0 Hypertensive heart disease with heart failure; I50.32 Chronic diastolic (congestive) heart failure; E66.9 Obesity, unspecified; Z68.33 Body mass index [BMI] 33.0-33.9, adult; G47.33 Obstructive sleep apnea (adult) (pediatric); E83.42 Hypomagnesemia; Z88.2 Allergy status to sulfonamides; Z88.8 Allergy status to other drugs, medicaments and biological substances; Z88.1 Allergy status to other antibiotic agents; Z91.013 Allergy to seafood; M43.16 Spondylolisthesis, lumbar region; Z20.822 Contact with and (suspected) exposure to COVID-19
CPT/HCPCS: 36415 ×2; 70450; 70551; 72131; 80048; 80053 ×2; 80061; 82553; 83036; 83090; 83735; 84100; 84443; 84484; 85025 ×2; 92526; 92610; 93005; 93306; 93880; 93970; 96360; 96361; 97139; 97161; 99284; G0378 ×3; J3475; S0164 ×2; U0002

== ENCOUNTER 2020-09-05 11:36 | Observation (INO) | payer MEDICARE ==
[~2020-09-05] VITALS: Ht 177.8 cm; Wt 108.0 kg
[~2020-09-05 11:36] MED LIST changes: +FAMOTIDINE20 MG PO; +FISH OIL 1,0001 EAC3 PEG; +INDERAL LA60 MG PO; +K-DUR20 MEQ PO; +LINZESS145 MCG PO; +MULTI-VITAMIN1 EACH PO; +PLAVIX75 MG PO; +TYLENOL EXTRA500 MG PO; +ULTRAM 50MG50 MG PO; +VITAMIN C1000 MG PO; +ZYRTEC10 M3 PO
[2020-09-05] MEDS ORDERED: ASPIRIN 81 MG CHEW TAB PO ONE (12:00)
[2020-09-05 12:04] LABS: BASOPHILS # (AUTO) 0.1 (0.0-0.1); BASOPHILS % 0.8 % (0.0-1.0); EOSINOPHILS # (AUTO) 0.1 (0.0-0.4); EOSINOPHILS % 1.2 % (0.0-6.0); HEMOGLOBIN 12.6 g/dL (14.0-18.0); LYMPHOCYTES # (AUTO) 1.5 (1.0-3.2); LYMPHOCYTES % 13.9 % (18.0-39.1); MEAN CORPUSCULAR HEMOGLOBIN 29.3 pg (28-32); MEAN CORPUSCULAR HGB CONC 33.2 g/dL (31-35); MEAN CORPUSCULAR VOLUME 88.4 fL (81-99); MONOCYTES % 9.1 % (4.4-11.3); NEUTROPHILS # (AUTO) 7.9 (2.1-6.9); NEUTROPHILS % 74.3 % (38.7-80.0); PLATELET COUNT 275 x10e3/uL (140-360)
[2020-09-05 12:14] LABS: INR 0.88; PROTHROMBIN TIME 12.4 seconds (11.9-14.5)
[2020-09-05 12:15] LABS: PARTIAL THROMBOPLASTIN TIME 26.4 seconds (23.8-35.5)
[2020-09-05 12:27] LABS: ALANINE AMINOTRANSFERASE 12 IU/L (0-55); ALBUMIN 3.8 g/dL (3.5-5.0); ALBUMIN/GLOBULIN RATIO 1.2 (0.8-2.0); ALKALINE PHOSPHATASE 66 IU/L (40-150); ANION GAP 15.8 mmol/L (8-16); BLOOD UREA NITROGEN 12 mg/dL (7-26); BUN/CREATININE RATIO 13 (6-25); CALCIUM 8.7 mg/dL (8.4-10.2); CARBON DIOXIDE 26 mmol/L (22-29); CHLORIDE 95 mmol/L (98-107); CREATINE KINASE 34 IU/L (30-200); CREATININE, SERUM 0.96 mg/dL (0.72-1.25); EST GLOMERULAR FILTRATION RATE > 60 ML/MIN (60-); GLUCOSE 107 mg/dL (74-118); MAGNESIUM 1.9 MG/DL (1.3-2.1); POTASSIUM 3.8 mmol/L (3.5-5.1); SODIUM 133 mmol/L (136-145)
[2020-09-05] MEDS ORDERED: MORPHINE SULFATE INJ 2 MG/ML SYR IV PRN (13:00)
[2020-09-05] MEDS ORDERED: ONDANSETRON HCL INJ 2MG/ML 2ML 2 MG/ML VIAL IV PRN (13:00)
[2020-09-05 14:00] VITALS: BP 148/78
[2020-09-05 14:28] LABS: CHOL/HDL RATIO 3.7 (3.9-4.7)
[2020-09-05 14:45] VITALS: BP 148/78
[2020-09-05 14:47] LABS: THYROID STIMULATING HORMONE 0.692 uIU/mL (0.350-4.940)
[2020-09-05] MEDS: FAMOTIDINE 20 MG/2 ML VIAL IV SCH (15:07)
[2020-09-05 15:41] VITALS: BP 148/78
[2020-09-05 17:00] VITALS: BP 161/82
[2020-09-05] MEDS ORDERED: ACETAMINOPHEN 325 MG TAB PO PRN (18:30)
[2020-09-05] MEDS ORDERED: IPRATROPIUM BROMIDE 0.02% 2.5 ML NEB NEB PRN (18:30)
[2020-09-05] MEDS ORDERED: LINACLOTIDE 145 MCG CAPSULE PO PRN (18:30)
[2020-09-05] MEDS ORDERED: METOLAZONE 5 MG TAB PO SCH (18:30)
[2020-09-05 20:00] VITALS: BP 152/80
[2020-09-05 20:34] LABS: CREATINE KINASE MB 0.6 ng/mL (0-5.0)
[2020-09-05 21:00] VITALS: BP 152/80
[2020-09-05] MEDS ORDERED: PRIMIDONE 250 MG TABLET PO SCH (21:00)
[2020-09-05] MEDS ORDERED: TERAZOSIN HCL 5 MG CAP PO SCH (21:00)
[2020-09-05] MEDS ORDERED: ASCORBIC ACID 500 MG TAB PO SCH (21:00)
[2020-09-05] MEDS ORDERED: ATORVASTATIN 20 MG TAB PO SCH (21:00)
[2020-09-05] MEDS ORDERED: NIACIN 500 MG TABSR PO SCH (21:00)
[2020-09-05] MEDS ORDERED: ASPIRIN 81 MG CHEW TAB PO SCH (21:00)
[2020-09-05] MEDS ORDERED: FAMOTIDINE 20 MG TAB PO SCH (21:00)
[2020-09-05] MEDS: CLONIDINE HCL 0.1 MG TAB PO SCH (23:52)
[2020-09-06] VITALS: BP 154/79
[2020-09-06 01:52] LABS: MAGNESIUM 1.9 MG/DL (1.3-2.1); PHOSPHORUS 3.6 MG/DL (2.3-4.7)
[2020-09-06 02:08] LABS: CREATINE KINASE 28 IU/L (30-200)
[2020-09-06 05:39] LABS: BASOPHILS # (AUTO) 0.1 (0.0-0.1); BASOPHILS % 1.1 % (0.0-1.0); EOSINOPHILS # (AUTO) 0.2 (0.0-0.4); EOSINOPHILS % 2.6 % (0.0-6.0); HEMATOCRIT 33.9 % (38.2-49.6); HEMOGLOBIN 11.4 g/dL (14.0-18.0); LYMPHOCYTES # (AUTO) 1.5 (1.0-3.2); LYMPHOCYTES % 23.4 % (18.0-39.1); MEAN CORPUSCULAR HEMOGLOBIN 29.5 pg (28-32); MEAN CORPUSCULAR HGB CONC 33.6 g/dL (31-35); MEAN CORPUSCULAR VOLUME 87.6 fL (81-99); MONOCYTES % 14.6 % (4.4-11.3); NEUTROPHILS # (AUTO) 3.8 (2.1-6.9); NEUTROPHILS % 57.5 % (38.7-80.0); PLATELET COUNT 228 x10e3/uL (140-360); RED BLOOD COUNT 3.87 x10e6/uL (4.3-5.7)
[2020-09-06] MEDS ORDERED: DUTASTERIDE 0.5 MG CAP PO SCH (06:00)
[2020-09-06 06:37] LABS: ALANINE AMINOTRANSFERASE 10 IU/L (0-55); ALBUMIN 3.4 g/dL (3.5-5.0); ALBUMIN/GLOBULIN RATIO 1.3 (0.8-2.0); ALKALINE PHOSPHATASE 56 IU/L (40-150); ANION GAP 16.5 mmol/L (8-16); BLOOD UREA NITROGEN 13 mg/dL (7-26); BUN/CREATININE RATIO 17 (6-25); CALCIUM 8.3 mg/dL (8.4-10.2); CARBON DIOXIDE 26 mmol/L (22-29); CHLORIDE 95 mmol/L (98-107); CREATININE, SERUM 0.78 mg/dL (0.72-1.25); EST GLOMERULAR FILTRATION RATE > 60 ML/MIN (60-); GLUCOSE 81 mg/dL (74-118); POTASSIUM 3.5 mmol/L (3.5-5.1); SODIUM 134 mmol/L (136-145)
[2020-09-06 07:01] LABS: CREATINE KINASE 27 IU/L (30-200)
[2020-09-06 07:22] VITALS: BP 157/74
[2020-09-06 09:00] VITALS: BP 157/74
[2020-09-06] MEDS ORDERED: POTASSIUM CHLORIDE 20 MEQ TAB CR PO SCH (09:00)
[2020-09-06] MEDS ORDERED: CLONIDINE HCL 0.1 MG TAB PO SCH (09:00)
[2020-09-06] MEDS ORDERED: FUROSEMIDE 40 MG TAB PO SCH (09:00)
[2020-09-06] MEDS ORDERED: ASPIRIN 81 MG ENTERIC COATED PO SCH (09:00)
[2020-09-06] MEDS: FAMOTIDINE 20 MG/2 ML VIAL IV SCH (09:00)
[2020-09-06] MEDS ORDERED: PROPRANOLOL HCL 60 MG ER CAP PO SCH (09:00)
[2020-09-06] MEDS ORDERED: OMEGA 3 POLYUNSAT FATTY ACIDS 1000 MG SOFTGEL PO SCH (09:00)
[2020-09-06] MEDS ORDERED: LORATADINE 10 MG TAB PO SCH (09:00)
[2020-09-06] MEDS ORDERED: MONTELUKAST SODIUM 10 MG TAB PO SCH (09:00)
[2020-09-06] MEDS ORDERED: MULTIVITAMINS/MINERALS TAB PO SCH (09:00)
[2020-09-06] MEDS ORDERED: SALMETEROL/FLUTICASONE 100/50 INH SCH (09:00)
[2020-09-06] MEDS: CLONIDINE HCL 0.1 MG TAB PO SCH (09:01)
[2020-09-06 11:02] VITALS: BP 150/75
[2020-09-06] MEDS ORDERED: Atorvastatin PO (12:09)
[2020-09-06] MEDS ORDERED: ONDANSETRON HCL 4 MG ORAL DISINTEGRATING TAB PO PRN (13:45)
[2020-09-06] MEDS ORDERED: ATORVASTATIN 40 MG TAB PO SCH (21:00)
== END 2020-09-06 13:30 | disposition home or self-care (01) ==
LOC: ER 11:50 → ERHOLD 12:49 → MED/SURG2 13:48
PROVIDERS: ADMIT Internal Medicine; ATTEND Internal Medicine
DX: R07.89 Other chest pain (principal); I11.0 Hypertensive heart disease with heart failure; I50.32 Chronic diastolic (congestive) heart failure; K21.9 Gastro-esophageal reflux disease without esophagitis; R51.9 Headache, unspecified; E78.5 Hyperlipidemia, unspecified; E66.9 Obesity, unspecified; Z90.49 Acquired absence of other specified parts of digestive tract; Z88.1 Allergy status to other antibiotic agents; Z88.2 Allergy status to sulfonamides; Z88.8 Allergy status to other drugs, medicaments and biological substances; Z80.8 Family history of malignant neoplasm of other organs or systems; Z82.3 Family history of stroke; Z82.49 Family history of ischemic heart disease and other diseases of the circulatory system; Z84.89 Family history of other specified conditions; R20.0 Anesthesia of skin; Z68.34 Body mass index [BMI] 34.0-34.9, adult; Z91.013 Allergy to seafood; Z20.822 Contact with and (suspected) exposure to COVID-19
CPT/HCPCS: 36415 ×2; 71045; 80053 ×2; 80061; 82550 ×2; 82553 ×2; 83735 ×2; 83880; 84100; 84443; 84484 ×2; 85025 ×2; 85379; 85610; 85730; 93005; 93306; 99284; G0378 ×2; U0002

== ENCOUNTER 2020-09-09 22:58 | Emergency (ER) | payer MEDICARE ==
[~2020-09-09] VITALS: Ht 177.8 cm; Wt 108.0 kg
[~2020-09-09 22:58] MED LIST changes: +Atorvastatin PO
[2020-09-09] MEDS ORDERED: METHYLPREDNISOLONE SOD SUCC 125 MG/2ML VIAL ONE (23:28)
[2020-09-09] MEDS ORDERED: METHYLPREDNISOLONE SOD SUCC 125 MG/2ML VIAL IM ONE (23:30)
== END 2020-09-10 00:25 | disposition home or self-care (01) ==
LOC: ER 23:20
DX: R51.9 Headache, unspecified (principal); J32.9 Chronic sinusitis, unspecified; I10 Essential (primary) hypertension; E78.5 Hyperlipidemia, unspecified; G47.30 Sleep apnea, unspecified
CPT/HCPCS: 99282; J2930

== ENCOUNTER 2020-09-11 16:27 | Emergency (ER) | payer MEDICARE ==
[~2020-09-11] VITALS: Ht 177.8 cm; Wt 108.0 kg
== END 2020-09-11 18:13 | disposition home or self-care (01) ==
LOC: ER 16:57
DX: H57.12 Ocular pain, left eye (principal); I10 Essential (primary) hypertension; E78.5 Hyperlipidemia, unspecified; G47.30 Sleep apnea, unspecified
CPT/HCPCS: 99283

== ENCOUNTER 2020-11-11 19:54 | Emergency (ER) | payer MEDICARE ==
[~2020-11-11] VITALS: Ht 177.8 cm; Wt 104.3 kg
[2020-11-11] MEDS ORDERED: DONNATAL/LIDOCAINE/MAALOX 30 ML SUSP PO ONE ×2 (20:45→21:00)
[2020-11-11] MEDS ORDERED: FAMOTIDINE 20 MG/2 ML VIAL IV STA (20:49)
[2020-11-11] MEDS ORDERED: BELLADONNA ALK/PHENOBARBITAL 5 ML UDC ONE (20:59)
[2020-11-11] MEDS ORDERED: FAMOTIDINE 20 MG/2 ML VIAL IV ONE (20:59)
[2020-11-11] MEDS ORDERED: MAGNESIUM/ALUMINUM/SIMETHICONE 30 ML UDC ONE (20:59)
[2020-11-11] MEDS ORDERED: LIDOCAINE VISC 2% SOLN 15 ML UDC ONE (20:59)
[2020-11-11] MEDS ORDERED: KETOROLAC TROMETHAMINE 30 MG/ML VIAL IV STA (22:14)
[2020-11-12 00:32] VITALS: BP 117/65
== END 2020-11-12 00:32 | disposition home or self-care (01) ==
LOC: FSED 20:05
DX: R07.9 Chest pain, unspecified (principal); I10 Essential (primary) hypertension; E78.5 Hyperlipidemia, unspecified; D64.9 Anemia, unspecified; K21.9 Gastro-esophageal reflux disease without esophagitis; G47.33 Obstructive sleep apnea (adult) (pediatric); N40.1 Benign prostatic hyperplasia with lower urinary tract symptoms
CPT/HCPCS: 71046; 93005; 99284; J1885

== ENCOUNTER 2021-01-01 20:32 | Emergency (ER) | payer MEDICARE ==
[~2021-01-01] VITALS: Ht 177.8 cm; Wt 104.3 kg
[2021-01-02] MEDS ORDERED: AUGMENTIN 875-1 EACH PO (00:48)
[2021-01-02] MEDS ORDERED: MEDROL4 MG PO (00:49)
== END 2021-01-02 01:15 | disposition home or self-care (01) ==
LOC: FSED 21:51
DX: R51.9 Headache, unspecified (principal); I10 Essential (primary) hypertension; J01.10 Acute frontal sinusitis, unspecified; E78.5 Hyperlipidemia, unspecified; G47.30 Sleep apnea, unspecified
CPT/HCPCS: 70450; 99283